=== PATIENT | male | born 1970 | race Caucasian/White ===

== ENCOUNTER → 2016-11-16 | Outpatient (CLI) | payer BC ==
[~2016-11-16] MED LIST: HYDR-33; NF-TORA10 PO; ONDAN4ODT PO; OSLT75C PO; TAMS-8 PO
[2016-11-17 11:07] VITALS: BP 126/84
--- NOTE | 2016-11-17 11:07 | Urgent Care T Sheet Gen (E) ---
Intake General Temperature (Fahrenheit): 98.5 Pulse: 87 Blood Pressure Systolic: 126 Blood Pressure Diastolic: 84 Respirations: 20 SPO2: 98 Description of Symptoms Patient presents with illness x 1 month. States his family keeps passing germs to each other. Notes sinus congestion, ST and intermittent low grade fever. Symptoms worsened today. No meds to treat his symptoms. Thought time would make it go away. History of Present Illness Allergies: Coded Allergies: Sulfa (Sulfonamide Antibiotics) (Verified Allergy, Severe, 04/10/15) Home Meds Active Scripts Ondansetron HCl (Zofran ODT)4 Mg Tab4 Mg PO Q4H PRN NAUSEA/VOMITING #10 TAB Prov:CAMI TREADWELL MD 04/10/15 Tamsulosin HCl (Flomax)0.4 Mg Cap0.4 Mg PO DAILY #14 CAP Prov:CAMI TREADWELL MD 04/10/15 Ketorolac Tromethamine (Toradol)10 Mg Tab10 Mg PO Q6H PRN PAIN #12 TAB Prov:CAMI TREADWELL MD 04/10/15 Reported Medications Hydrocodone/Acetaminophen (ED- [place] 5/325mg #6)1 Each Tablet2 As Needed Prn Pain 04/10/15 Respiratory Constitutional Symptoms: Fever EENTM: Nose Congestion Throat pain Respiratory: No symptoms reported Cardiovascular: No symptoms reported Gastrointestinal/Abdominal: No symptoms reported All Other Systems Reviewed Remaining Systems: All other systems reviewed with negative findings Past Hfkawsk-Mchjny-Tycvba Hx Patient's Social History Recent foreign travel: No Surgeries/Hospitalizations Hospitalization/Surgery Hx: HX KIDNEY STONES WITH LIPOTRYPSY Respiratory Respiratory History: None Cardiovascular Cardiovascular History: None Reproductive System Sexually Transmitted Diseases: No Gastrointestinal GI/Endocrine History: None Diabetes Diabetes: No HEENT Impaired Vision: None Hearing Impaired: None Psychosocial Behavior Disorders: None Physical Exam Physical Exam General Appearance: WD/WN No apparent distress Eyes, Ears, Nose, Throat Ex: TMs normal (air fluid bubbles) Pharyngeal erythema (cobblestone appearance) Other (red, swollen nasal turbinates with thick, clear drainage) Neck Exam: SuppleNo Lymphadenopathy Respiratory Exam: Lungs clear Normal breath sounds Cardiovascular Exam: Regular rate, rhythm Departure Urgent Care Impression Impression: Primary Impression: Sinusitis Qualified Code: J01.00 - Acute maxillary sinusitis, unspecified Departure Disposition: HOME OR SELF-CARE Condition: Stable Referrals: Pérez Rodrigez MD (PCP) Additional Instructions: I have started the patient on Augmentin 500mg BID x 10 days Rest. Fluids Return as needed Lysol common household areas to prevent spreading. Patient understands DC instructions. All questions were answered. End of report . MARIO ANDREWS Nov 17, 2016 11:07
== END ==
LOC: MHUC 18:41
PROVIDERS: ATTEND Physician Assistant
DX: J01.00 Acute maxillary sinusitis, unspecified (principal)
CPT/HCPCS: 99213

== ENCOUNTER → 2017-01-07 | Emergency (ER) | payer BC ==
[~2017-01-07] VITALS: Ht 175.3 cm; Wt 88.0 kg
[~2017-01-07] MED LIST changes: -HYDR-33; -NF-TORA10 PO; -ONDAN4ODT PO; +OSELTAMIVIR (TAMIFLU) 75 MG CAP PO ONE; -OSLT75C PO; -TAMS-8 PO
[2017-01-07 11:45] LABS: INFLUENZA VIRUS TYPE B ANTIBOD Negative (NEGATIVE)
[2017-01-07 11:46] LABS: INFLUENZA VIRUS TYPE A ANTIBOD Positive (NEGATIVE)
--- NOTE | 2017-01-07 11:46 | NUR ---
Lab calls, pt is positive for Influenza A
[2017-01-07 11:58] LABS: BASOPHILS % (AUTO) 0 % (0-2); EOSINOPHILS % (AUTO) 1 % (0-4); LYMPHOCYTES # (AUTO) 1.3 X10^3; MEAN CORPUSCULAR VOLUME 89 FL (80-100); MEAN PLATELET VOLUME 9.8 FL (6.0-9.5); MONOCYTES # (AUTO) 0.7 X10^3; MONOCYTES % (AUTO) 11 % (3-11); NEUTROPHILS # (AUTO) 4.3 X10^3; NEUTROPHILS % (AUTO) 68 % (51-67); PLATELET COUNT 171 10^3uL (150-450); WHITE BLOOD COUNT 6.34 10^3uL (4.0-11.0)
[2017-01-07 11:59] LABS: MEAN CORPUSCULAR HGB CONC 35.9 g/dL (31.0-37.0)
[2017-01-07 12:10] LABS: ALBUMIN 4.7 g/dL (3.4-5.0); ANION GAP 15.5 MEQ/L (3-15); CALCULATED IONIZED CALCIUM 3.8 mg/dL (3.8-4.6); TOTAL PROTEIN 7.9 g/dL (6.4-8.5)
[2017-01-07 12:32] VITALS: BP 137/87
== END | disposition home or self-care (01) ==
LOC: ED 10:45
DX: J11.1 Influenza due to unidentified influenza virus with other respiratory manifestations (principal); Z87.891 Personal history of nicotine dependence
CPT/HCPCS: 36415; 70450; 80053; 85025; 86140; 87502; 99282; 99283